=== PATIENT | male | born 1950 | race Caucasian/White ===

== ENCOUNTER 2021-08-19 17:22 | Emergency (ER) | payer MEDICARE ==
[2021-08-19 21:01] LABS: Basophils % (Auto) 0.8 % (0.0-1.8); Eosinophils # (Auto) 0.1 K/mm3 (0.0-0.4); Eosinophils % (Auto) 1.4 % (0.0-4.3); Lymphocytes # (Auto) 1.7 K/mm3 (1.2-5.4); Lymphocytes % (Auto) 26.8 % (13.4-35.0); Mean Corpuscular HGB Conc 33 % (32-34); Mean Corpuscular Volume 89 fl (84-94); Monocytes # (Auto) 0.6 K/mm3 (0.0-0.8); Monocytes % (Auto) 10.1 % (0.0-7.3); Platelet Count 218 K/mm3 (140-440); Red Blood Count 4.37 M/mm3 (3.65-5.03); Red Cell Distribution Width 14.1 % (13.2-15.2)
[2021-08-19 21:08] LABS: Alanine Aminotransferase 31 units/L (7-56); BUN/Creatinine Ratio 15; Blood Urea Nitrogen 12 mg/dL (9-20); Calcium 9.6 mg/dL (8.4-10.2); Hemolysis Index 12
--- NOTE | 2021-08-20 00:26 | Emergency Department Report ---
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 Patient attempted to place pillow over roommate's face according to 1013 form. Patient presents from [facility]. Due to dysphasia I have difficulty understanding patient. He is mostly cooperative. He is calm. He denies attempting to harm anyone. MD Complaint: other (Aggressive behavior history of bipolar disorder dementia depression) -: This evening Associated Psychiatric Symptoms: other (Aggressive behavior according to 1013 documentation) Quality: resolved prior to arrival Improves With: medication Worsens With: none Context: other (Patient is a resident of [facility]) Treatments Prior to Arrival: placed on mental he, other (1013 form completed by medical staff member, patient transported via EMS) - Related Data Previous Rx's Medication Instructions Recorded Last Taken Type Sulfamethoxazole/Trimethoprim 1 each PO BID #10 tab 08/20/21 Unknown Rx [Bactrim DS TAB] Allergies Allergy/AdvReac Type Severity Reaction Status Date / Time ibuprofen [From Motrin] Allergy Unknown Verified 08/19/21 19:22 meloxicam [From Mobic] Allergy Unknown Verified 08/19/21 19:22 naproxen [From Naprosyn] Allergy Unknown Verified 08/19/21 19:22 ED Review of Systems ROS: Stated complaint: MEDICAL CLEARANCE Other details as noted in HPI Comment: Unobtainable due to pts medical conditions (Severe dysphasia) ED Past Medical Hx - Past Medical History Previous Medical History?: Yes Hx Hypertension: Yes Hx CVA: Yes Hx Congestive Heart Failure: Yes Hx Psychiatric Treatment: Yes (Bipolar disorder, depression, dementia) - Surgical History Additional Surgical History: Unable to obtain - Social History Smoking Status: Unknown if ever smoked Substance Use Type: None - Medications Home Medications: Home Medications Medication Instructions Recorded Confirmed Last Taken Type Sulfamethoxazole/Trimethoprim 1 each PO BID #10 tab 08/20/21 Unknown Rx [Bactrim DS TAB] ED Physical Exam - General Limitations: Physical Limitation General appearance: alert, in no apparent distress, other (Cooperative right fac ial droop evident) - Head Head exam: Present: atraumatic, normocephalic - Eye Eye exam: Present: normal appearance - ENT ENT exam: Present: mucous membranes moist - Neck Neck exam: Present: normal inspection - Respiratory Respiratory exam: Present: normal lung sounds bilaterally. Absent: respiratory distress, wheezes, rales, stridor - Cardiovascular Cardiovascular Exam: Present: regular rate, normal rhythm. Absent: systolic murmur, diastolic murmur, rubs, gallop - GI/Abdominal GI/Abdominal exam: Present: soft, normal bowel sounds. Absent: distended, tenderness, guarding, rebound - Rectal Rectal exam: Present: deferred - Extremities Exam Extremities exam: Present: normal inspection - Neurological Exam Neurological exam: Present: alert - Psychiatric Psychiatric exam: Present: normal mood, flat affect - Skin Skin exam: Present: warm, dry, intact, normal color. Absent: rash ED Course Vital Signs 08/20/21 08/21/21 16:18 02:42 Temperature 98.1 F Pulse Rate 70 96 H Respiratory 16 22 Rate Blood Pressure 130/72 [Left] O2 Sat by Pulse 100 100 Oximetry ED Medical Decision Making - Lab Data Result diagrams: 08/19/21 20:35 08/19/21 20:35 Laboratory Results - last 24 hr 08/19/21 08/19/21 08/19/21 20:35 20:35 20:35 WBC 6.3 RBC 4.37 Hgb 13.0 Hct 39.0 MCV 89 MCH 30 MCHC 33 RDW 14.1 Plt Count 218 Lymph % (Auto) 26.8 [place] % (Auto) 10.1 H Eos % (Auto) 1.4 Baso % (Auto) 0.8 Lymph # (Auto) 1.7 [place] # (Auto) 0.6 Eos # (Auto) 0.1 Baso # (Auto) 0.0 Seg Neutrophils % 60.9 Seg Neutrophils # 3.9 Sodium 139 Potassium 3.9 Chloride 106.1 Carbon Dioxide 21 L Anion Gap 16 BUN 12 Creatinine 0.8 Estimated GFR > 60 BUN/Creatinine Ratio 15 Glucose 102 H Calcium 9.6 Total Bilirubin 0.50 AST 16 ALT 31 Alkaline Phosphatase 77 Total Protein 6.9 Albumin 4.0 Albumin/Globulin Ratio 1.4 Salicylates < 0.3 L Acetaminophen Plasma/Serum Alcohol 08/19/21 08/19/21 20:35 20:35 WBC RBC Hgb Hct MCV MCH MCHC RDW Plt Count Lymph % (Auto) [place] % (Auto) Eos % (Auto) Baso % (Auto) Lymph # (Auto) [place] # (Auto) Eos # (Auto) Baso # (Auto) Seg Neutrophils % Seg Neutrophils # Sodium Potassium Chloride Carbon Dioxide Anion Gap BUN Creatinine Estimated GFR BUN/Creatinine Ratio Glucose Calcium Total Bilirubin AST ALT Alkaline Phosphatase Total Protein Albumin Albumin/Globulin Ratio Salicylates Acetaminophen 5.0 L Plasma/Serum Alcohol < 0.01 - Medical Decision Making This is a 71-year-old male with history of several medical comorbidities as well as bipolar disorder who presents with aggressive behavior and outbursts at half-way facility. 1013 form completed by medical staff member prior to EMS transport. Patient is medically clear for psychiatric care. CBC chemistry serum toxicology screen all unremarkable. I have ordered patient's home medications. I have requested consults by our psychiatry team and case management staff. Awaiting treatment recommendations. No evidence of acute emergent medical condition. Critical care attestation.: If time is entered above; I have spent that time in minutes in the direct care of this critically ill patient, excluding procedure time. ED Disposition Clinical Impression: Bipolar disorder, Bacteriuria with pyuria, Encounter for behavioral health screening Disposition: [facility] Is pt being admited?: No Does the pt Need Aspirin: No Condition: Good Additional Instructions: Take the Bactrim antibiotics as directed. Follow-up with your primary care doctor within the next 3 to 4 days for repeat checkup and evaluation. Have your primary care doctor contact the medical records department to obtain copies of laboratory studies and ER documentation from the medical records department. Avoid sedating medications. Please return to the emergency room right away with new pain, worsened pain, migration of pain, projectile vomiting, change in mental status, confusion, inability tolerate liquid feeds, new, worsened or different symptoms not present on the initial emergency room evaluation Professional and Agency Contacts To help [facility](22/02) [place] Crisis Line: Suicide Prevention Line: Crisis Text Line: Text START to 209718 Emergency: 911 Outpatient COMMUNITY Behavioral Health Resources: DEKALB: [facility] [address] [place], [place] [address] HEMA: [facility] [address] [place] [address] MAYA: [facility] - [address] [place] [address] Wednesday thru Wednesday - 8am - 5pm MANY: [facility] Address: [address], [place] [address] ODALYS: [facility] Address: [address] [place] [address] Wednesday thru Wednesday- 7am-2pm [facility] Address: [address] [place] [address] Wednesday thru Wednesday: 8:30AM-5PM OUTPATIENT MENTAL HEALTH RESOURCES [facility], [facility] Jon Paul MD: [address], [address] [place] [address] [place] [address] [facility]: [facility] [place] [address] [place] [address] [phone] [facility]: [facility] Healthcare: [address] [facility] [address] [place] [address] [place] [address] [facility] [address] [facility]: William Dickinson MD: [id number] [facility] [address] [facility] [id number] [facility]: [address] [place] [address] [phone] [place] CRISIS AND ACCESS LINE: Prescriptions: Sulfamethoxazole/Trimethoprim [Bactrim DS TAB] 1 each PO BID #10 tab Referrals: PRIMARY CARE, [Primary Care Provider] - 3-5 Days
[2021-08-20] MEDS ORDERED: lamoTRIgine 25 MG TAB PO SCH (10:00)
[2021-08-20] MEDS ORDERED: QUEtiapine 100 MG TAB PO SCH (10:00)
--- NOTE | 2021-08-20 12:15 | Consultation ---
History of Present Illness - Reason for Consult Consult date: 08/20/21 Reason for consult: aggression - History of Present Psychiatric Illness The patient is a 71y/o male patient who was brought in from the local alf for attempting to place a pillow over his roommate's face. During my evaluation of the patient he is calm, and cooperative. His speech is garbled and difficult to understand at times due to a past CVA. He says "I'm alright" when asking him how he was doing. The patient says "naw I didn't do that" when asking him about the incident of him alleging placing a pillow over his roommate's face. His pants are soiled and he's telling me he needs to be cleaned up. His nurse is in the process of taking care of that. The patient says "[facility] " when asking him if he knew where he was. He referenced the date as July. When asking if he could recall the . President, the patient says "I know but I just can't think of it." He denies SI/HI or hallucinations. The nurse caring for the patient today, states the patient has been calm, and c ooperative, and not exhibited any signs of agitation or aggression. He also states the patient denied any thoughts of wanting to hurt himself or his roommate. REVIEW OF SYSTEMS Constitutional: Negative for weight loss ENT: Negative for stridor Respiratory: Negative for cough or hemoptysis All other systems reviewed and are negative MENTAL STATUS EXAMINATION General Appearance and Behavior: Age appropriate, good hygiene, wearing appropriate clothes. calm, cooperative Cooperation: Cooperative Psychomotor Behavior: Psychomotor normal Mood: alright Affect and affective range: Congruent with stated mood Thought Process: forgetful Thought Content: Reality oriented Speech: garbled Suicidal Ideation: Denies Homicidal Ideation: Denies Hallucinations: Denies Delusions: Denies Impulse Control: Limited Insight and Judgment: Limited insight and fair judgment Memory: Limited Attention: attentive Orientation: a/o x 2 Assessment (1) Bipolar Disorder Current Visit: Yes Status: Acute Treatment Plan d/c 1013 Resume home medications Medical: per primary Disposition: Do not recommend acute psychiatric inpatient treatment at this time. The patient may return back to the alf once medically clear Will sign off. Thanks Case staffed with Dr. Gorman Medications and Allergies Allergies Allergy/AdvReac Type Severity Reaction Status Date / Time ibuprofen [From Motrin] Allergy Unknown Verified 08/19/21 19:22 meloxicam [From Mobic] Allergy Unknown Verified 08/19/21 19:22 naproxen [From Naprosyn] Allergy Unknown Verified 08/19/21 19:22 Active Meds: Active Medications Lamotrigine (Lamotrigine 25 Mg Tab) 25 mg PO DAILY NOE Quetiapine Fumarate (Quetiapine 100 Mg Tab) 100 mg PO BID NOE Trazodone HCl (Trazodone 50 Mg Tab) 50 mg PO QHS NOE Results Result Diagrams: 08/19/21 20:35 08/19/21 20:35 Abnormal lab results 08/19/21 08/19/21 08/19/21 Range/Units 20:35 20:35 20:35 [place] % (Auto) 10.1 H (0.0-7.3) % Carbon Dioxide 21 L (22-30) mmol/L Glucose 102 H (75-100) mg/dL Salicylates < 0.3 L (2.8-20.0) mg/dL Acetaminophen (10.0-30.0) ug/mL 08/19/21 Range/Units 20:35 [place] % (Auto) (0.0-7.3) % Carbon Dioxide (22-30) mmol/L Glucose (75-100) mg/dL Salicylates (2.8-20.0) mg/dL Acetaminophen 5.0 L (10.0-30.0) ug/mL All other labs normal.
--- NOTE | 2021-08-20 14:40 | Event Note ---
Date: 08/20/21 The patient was evaluated in the emergency department for symptoms described in the history of present illness. He/she was evaluated in the context of the global COVID-19 pandemic, which necessitated consideration that the patient might be at risk for infection with the virus that causes COVID-19. Institutional protocols and algorithms that pertain to the evaluation of patients at risk for COVID-19 are in a state of rapid change based on information released by regulatory bodies including the CDC and federal and state organizations. These policies and algorithms were followed during the patient's care in the emergency department. Please note that these policies, procedures and recommendations changed on a rapid basis. Patient seen and examined. He was deemed to not have an emergent medical condition by the initial treating ER provider. He has also been seen by the psychiatry team, who recommended discharge, and did not recommend 1013. On my assessment, the patient is resting comfortably, in a stretcher, and he is in no acute distress. A urinalysis was ordered yesterday by my colleague, and results are pending. The urine sample is at the bedside. In addition, vital signs are not documented in the medical chart at this time. Have ordered nursing team/care team to obtain a full set of vital signs, and to please send the patient's urinalysis. Presuming these are acceptable and within normal limits, it would be reasonable to discharge this patient back to his skilled nursing. 08/20/2021; 16: 20 p.m. urinalysis suggestive of UTI. Bactrim ordered. Still awaiting vital signs to be placed in medical record system. Have rediscussed this with nursing and care team. Lab Results 08/19/21 08/19/21 08/19/21 Range/Units 20:35 20:35 20:35 WBC 6.3 (4.5-11.0) K/mm3 RBC 4.37 (3.65-5.03) M/mm3 Hgb 13.0 (11.8-15.2) gm/dl Hct 39.0 (35.5-45.6) % MCV 89 (84-94) fl MCH 30 (28-32) pg MCHC 33 (32-34) % RDW 14.1 (13.2-15.2) % Plt Count 218 (140-440) K/mm3 Lymph % (Auto) 26.8 (13.4-35.0) % [place] % (Auto) 10.1 H (0.0-7.3) % Eos % (Auto) 1.4 (0.0-4.3) % Baso % (Auto) 0.8 (0.0-1.8) % Lymph # (Auto) 1.7 (1.2-5.4) K/mm3 [place] # (Auto) 0.6 (0.0-0.8) K/mm3 Eos # (Auto) 0.1 (0.0-0.4) K/mm3 Baso # (Auto) 0.0 (0.0-0.1) K/mm3 Seg Neutrophils % 60.9 (40.0-70.0) % Seg Neutrophils # 3.9 (1.8-7.7) K/mm3 Sodium 139 (137-145) mmol/L Potassium 3.9 (3.6-5.0) mmol/L Chloride 106.1 (98-107) mmol/L Carbon Dioxide 21 L (22-30) mmol/L Anion Gap 16 mmol/L BUN 12 (9-20) mg/dL Creatinine 0.8 (0.8-1.3) mg/dL Estimated GFR > 60 ml/min BUN/Creatinine Ratio 15 % Glucose 102 H (75-100) mg/dL Calcium 9.6 (8.4-10.2) mg/dL Total Bilirubin 0.50 (0.1-1.2) mg/dL AST 16 (5-40) units/L ALT 31 (7-56) units/L Alkaline Phosphatase 77 (35-129) units/L Total Protein 6.9 (6.3-8.2) g/dL Albumin 4.0 (3.9-5) g/dL Albumin/Globulin Ratio 1.4 % Salicylates < 0.3 L (2.8-20.0) mg/dL Acetaminophen (10.0-30.0) ug/mL Plasma/Serum Alcohol (0-0.07) % 08/19/21 08/19/21 Range/Units 20:35 20:35 WBC (4.5-11.0) K/mm3 RBC (3.65-5.03) M/mm3 Hgb (11.8-15.2) gm/dl Hct (35.5-45.6) % MCV (84-94) fl MCH (28-32) pg MCHC (32-34) % RDW (13.2-15.2) % Plt Count (140-440) K/mm3 Lymph % (Auto) (13.4-35.0) % [place] % (Auto) (0.0-7.3) % Eos % (Auto) (0.0-4.3) % Baso % (Auto) (0.0-1.8) % Lymph # (Auto) (1.2-5.4) K/mm3 [place] # (Auto) (0.0-0.8) K/mm3 Eos # (Auto) (0.0-0.4) K/mm3 Baso # (Auto) (0.0-0.1) K/mm3 Seg Neutrophils % (40.0-70.0) % Seg Neutrophils # (1.8-7.7) K/mm3 Sodium (137-145) mmol/L Potassium (3.6-5.0) mmol/L Chloride (98-107) mmol/L Carbon Dioxide (22-30) mmol/L Anion Gap mmol/L BUN (9-20) mg/dL Creatinine (0.8-1.3) mg/dL Estimated GFR ml/min BUN/Creatinine Ratio % Glucose (75-100) mg/dL Calcium (8.4-10.2) mg/dL Total Bilirubin (0.1-1.2) mg/dL AST (5-40) units/L ALT (7-56) units/L Alkaline Phosphatase (35-129) units/L Total Protein (6.3-8.2) g/dL Albumin (3.9-5) g/dL Albumin/Globulin Ratio % Salicylates (2.8-20.0) mg/dL Acetaminophen 5.0 L (10.0-30.0) ug/mL Plasma/Serum Alcohol < 0.01 (0-0.07) % Lab Results 08/19/21 08/19/21 08/19/21 Range/Units 20:35 20:35 20:35 WBC 6.3 (4.5-11.0) K/mm3 RBC 4.37 (3.65-5.03) M/mm3 Hgb 13.0 (11.8-15.2) gm/dl Hct 39.0 (35.5-45.6) % MCV 89 (84-94) fl MCH 30 (28-32) pg MCHC 33 (32-34) % RDW 14.1 (13.2-15.2) % Plt Count 218 (140-440) K/mm3 Lymph % (Auto) 26.8 (13.4-35.0) % [place] % (Auto) 10.1 H (0.0-7.3) % Eos % (Auto) 1.4 (0.0-4.3) % Baso % (Auto) 0.8 (0.0-1.8) % Lymph # (Auto) 1.7 (1.2-5.4) K/mm3 [place] # (Auto) 0.6 (0.0-0.8) K/mm3 Eos # (Auto) 0.1 (0.0-0.4) K/mm3 Baso # (Auto) 0.0 (0.0-0.1) K/mm3 Seg Neutrophils % 60.9 (40.0-70.0) % Seg Neutrophils # 3.9 (1.8-7.7) K/mm3 Sodium 139 (137-145) mmol/L Potassium 3.9 (3.6-5.0) mmol/L Chloride 106.1 (98-107) mmol/L Carbon Dioxide 21 L (22-30) mmol/L Anion Gap 16 mmol/L BUN 12 (9-20) mg/dL Creatinine 0.8 (0.8-1.3) mg/dL Estimated GFR > 60 ml/min BUN/Creatinine Ratio 15 % Glucose 102 H (75-100) mg/dL Calcium 9.6 (8.4-10.2) mg/dL Total Bilirubin 0.50 (0.1-1.2) mg/dL AST 16 (5-40) units/L ALT 31 (7-56) units/L Alkaline Phosphatase 77 (35-129) units/L Total Protein 6.9 (6.3-8.2) g/dL Albumin 4.0 (3.9-5) g/dL Albumin/Globulin Ratio 1.4 % Urine Color (Yellow) Urine Turbidity (Clear) Urine pH (5.0-7.0) Ur Specific [place] (1.003-1.030) Urine Protein (Negative) mg/dL Urine Glucose (UA) (Negative) mg/dL Urine Ketones (Negative) mg/dL Urine Blood (Negative) Urine Nitrite (Negative) Urine Bilirubin (Negative) Urine Urobilinogen (<2.0) mg/dL Ur Leukocyte Esterase (Negative) Urine WBC (Auto) (0.0-6.0) /HPF Urine RBC (Auto) (0.0-6.0) /HPF Urine Bacteria (Auto) (Negative) /HPF Urine Mucus /HPF Salicylates < 0.3 L (2.8-20.0) mg/dL Acetaminophen (10.0-30.0) ug/mL Plasma/Serum Alcohol (0-0.07) % 08/19/21 08/19/21 08/20/21 Range/Units 20:35 20:35 Unknown WBC (4.5-11.0) K/mm3 RBC (3.65-5.03) M/mm3 Hgb (11.8-15.2) gm/dl Hct (35.5-45.6) % MCV (84-94) fl MCH (28-32) pg MCHC (32-34) % RDW (13.2-15.2) % Plt Count (140-440) K/mm3 Lymph % (Auto) (13.4-35.0) % [place] % (Auto) (0.0-7.3) % Eos % (Auto) (0.0-4.3) % Baso % (Auto) (0.0-1.8) % Lymph # (Auto) (1.2-5.4) K/mm3 [place] # (Auto) (0.0-0.8) K/mm3 Eos # (Auto) (0.0-0.4) K/mm3 Baso # (Auto) (0.0-0.1) K/mm3 Seg Neutrophils % (40.0-70.0) % Seg Neutrophils # (1.8-7.7) K/mm3 Sodium (137-145) mmol/L Potassium (3.6-5.0) mmol/L Chloride (98-107) mmol/L Carbon Dioxide (22-30) mmol/L Anion Gap mmol/L BUN (9-20) mg/dL Creatinine (0.8-1.3) mg/dL Estimated GFR ml/min BUN/Creatinine Ratio % Glucose (75-100) mg/dL Calcium (8.4-10.2) mg/dL Total Bilirubin (0.1-1.2) mg/dL AST (5-40) units/L ALT (7-56) units/L Alkaline Phosphatase (35-129) units/L Total Protein (6.3-8.2) g/dL Albumin (3.9-5) g/dL Albumin/Globulin Ratio % Urine Color Yellow (Yellow) Urine Turbidity Turbid (Clear) Urine pH 6.0 (5.0-7.0) Ur Specific [place] 1.017 (1.003-1.030) Urine Protein 100 mg/dl (Negative) mg/dL Urine Glucose (UA) Neg (Negative) mg/dL Urine Ketones Neg (Negative) mg/dL Urine Blood Sm (Negative) Urine Nitrite Pos (Negative) Urine Bilirubin Neg (Negative) Urine Urobilinogen < 2.0 (<2.0) mg/dL Ur Leukocyte Esterase Lg (Negative) Urine WBC (Auto) > 182.0 H (0.0-6.0) /HPF Urine RBC (Auto) 88.0 (0.0-6.0) /HPF Urine Bacteria (Auto) 4+ (Negative) /HPF Urine Mucus 3+ /HPF Salicylates (2.8-20.0) mg/dL Acetaminophen 5.0 L (10.0-30.0) ug/mL Plasma/Serum Alcohol < 0.01 (0-0.07) % 08/20/2021; 1630 p.m. vital signs unremarkable. Discharge. Vital Signs 08/20/21 16:18 Temperature 98.1 F Pulse Rate 70 Respiratory 16 Rate Blood Pressure 130/72 [Left] O2 Sat by Pulse 100 Oximetry
[2021-08-20 15:33] LABS: Bacteria,Urine 4+ /HPF (Negative); Bilirubin,Urine NEG (Negative); Blood,Urine SM (Negative); Color,Urine Yellow (Yellow); Mucus,Urine 3+ /HPF; Urobilinogen,Urine < 2.0 mg/dL (<2.0)
[2021-08-20 15:35] LABS: WBC,Urine > 182.0 /HPF (0.0-6.0)
[2021-08-20] MEDS ORDERED: SULFAMETHOXAZOLE/TRIMETHOPRIM 800/160MG DS TAB PO ONE ×2 (16:18→19:47)
[2021-08-20 16:19] VITALS: BP 130/72
[2021-08-20] MEDS ORDERED: traZODone 50 MG TAB PO SCH (19:00)
== END 2021-08-21 02:42 ==
LOC: ED 17:22
DX: F31.9 Bipolar disorder, unspecified (principal); I10 Essential (primary) hypertension; Z86.79 Personal history of other diseases of the circulatory system; Z88.6 Allergy status to analgesic agent; Z88.8 Allergy status to other drugs, medicaments and biological substances
CPT/HCPCS: 36415; 80053; 80320; 81001; 85025; 99283; G0480